=== PATIENT | female | born 1985 | race Caucasian/White ===

== ENCOUNTER 2017-01-04 21:25 | Inpatient (IN) | payer OTHER ==
[~2017-01-04] VITALS: Ht 172.7 cm; Wt 100.2 kg
[~2017-01-04 21:25] MED LIST: PNV1TABL72 PO
[2017-01-04] MEDS ORDERED: Lactated Ringer's 1,000 ML IV PRN (21:53)
[2017-01-04] MEDS ORDERED: Oxytocin 30 Units/500 mL LR 30 UNITS in IV Premix 1 EACH IV PRN (21:55)
[2017-01-04] MEDS ORDERED: Methylergonovine 0.2 mg/mL Inj IM PRN (21:55)
[2017-01-04] MEDS ORDERED: Oxytocin 10 Unit/mL Inj IM PRN (21:55)
[2017-01-04] MEDS ORDERED: fentaNYL-PF 50 mCg/mL 2 mL Inj IVPUSH PRN (21:55)
[2017-01-04] MEDS ORDERED: Penicillin G K Inj 5,000,000 UNITS in Dextrose 5% Minibag Plus 100 ML IV ONE (21:55)
[2017-01-04] MEDS ORDERED: Carboprost 250 mCg/mL Inj IM PRN (21:55)
[2017-01-04] MEDS ORDERED: Hemorrhage Kit, Post Partum XX ONE (21:55)
[2017-01-04] MEDS ORDERED: Sodium Chloride LOK Flush 10 mL Syringe IVFLUSH PRN (21:55)
[2017-01-04] MEDS: Lactated Ringer's 1,000 ML IV SCH (22:17)
[2017-01-04 22:49] LABS: Mean Corpuscular Hemoglobin 32.5 pg (27.0-35.0); Mean Corpuscular Volume 93.6 fL (81-100)
[2017-01-05] MEDS: Penicillin G K Inj 3,000,000 UNITS in IV Premix 1 EACH IV SCH ×4 (02:14→16:45)
--- NOTE | 2017-01-05 08:14 | HP ---
[address] [address] HISTORY AND PHYSICAL PATIENT: DILCIA PICKENS : 1985 MR#: [id number] ADMIT: 01/04/2017 JOB ID: [id number] HISTORY OF PRESENT ILLNESS: This is a 31-year-old female, 2, para 0-0-1-0. She is 39 weeks plus 5 days. She presents to [facility] for leaking of fluid at 10 p.m., with no contractions. The rupture of membranes was confirmed at the triage. No contraction was noticed. heart tracing was category 1. This patient has routine care at [facility]. During her care, it was noted that her blood type is A-positive, Pap smear negative, varicella immune, rubella immune, RPR negative, HBsAg negative, HIV negative. Her diabetes screen, 1 hour glucose test 98. Her GBS was positive. Gonorrhea/chlamydia negative. ALLERGIES: The patient has declined drug allergies. PAST MEDICAL HISTORY: Not significant. PAST SURGICAL HISTORY: Not significant. OBSTETRICAL HISTORY: She had one miscarriage. GYNECOLOGIC HISTORY: Not significant. SOCIAL HISTORY: Declined smoking, drinking alcohol, or drug usage. FAMILY HISTORY: Not significant. PHYSICAL EXAMINATION: She is afebrile. Cardiac: RR. No murmur. Pulmonary: Bilaterally clear. Abdomen is soft, nontender. Uterus: Relaxed. Extremities: Nontender. Pelvic examination: 2-3, -2. heart tracing category 1. No significant was noticed. ASSESSMENT AND PLAN: A 31-year-old female, 2, para 0-0-1-0, at 39 weeks plus 5 days. Rupture of membranes. Not in labor. 1. We will start her on penicillin for GBS positive. 2. Plan to start Pitocin induction in 6 hours after rupture of membranes if no spontaneous onset of labor. 3. Patient can get epidural for pain during labor if she expects pain management, or she can get IV medication for pain. 4. Expect vaginal delivery.
[2017-01-05] MEDS: Lactated Ringer's 1,000 ML IV SCH ×3 (10:56→18:32)
[2017-01-05] MEDS ORDERED: Lactated Ringer's 1,000 ML IV SCH (21:42)
[2017-01-05] MEDS ORDERED: Carboprost 250 mCg/mL Inj IM PRN (21:45)
[2017-01-05] MEDS ORDERED: Oxytocin 30 Units/500 mL LR 30 UNITS in IV Premix 1 EACH IV PRN (21:45)
[2017-01-05] MEDS ORDERED: Oxytocin 10 Unit/mL Inj IM PRN (21:45)
[2017-01-05] MEDS ORDERED: Benzocaine (Dermoplast) 20% 60 Gm Spray TOPICAL PRN (21:45)
[2017-01-05] MEDS ORDERED: Methylergonovine 0.2 mg/mL Inj IM PRN (21:45)
[2017-01-05] MEDS ORDERED: Witch Hazel-Glycerin Pads TOPICAL PRN (21:45)
[2017-01-05] MEDS ORDERED: oxyCODONE-Acetamin 5-325 mg Tablet PO PRN (21:45)
[2017-01-05] MEDS ORDERED: Hemorrhage Kit, Post Partum XX ONE (21:45)
[2017-01-05] MEDS ORDERED: LANOlin HPA 7 Gm Ointment TOPICAL PRN (21:45)
--- NOTE | 2017-01-05 21:59 | OP ---
[address] [address] OPERATIVE REPORT PATIENT: DILCIA PICKENS : 1985 MR#: [id number] ADMIT: 01/04/2017 JOB ID: [id number] DATE OF SURGERY: 01/05/2017 (date of delivery) PREOPERATIVE DIAGNOSIS(ES): A 31-year-old, 2, para 0-0-1-0 at 39 weeks and 5 days gestational age presented to the center with premature rupture of membranes. Induction of labor started with Pitocin. Patient progressed to fully dilated, +3 station. GBS positive. Treated with penicillin prophylaxis. POSTOPERATIVE DIAGNOSIS(ES): A 31-year-old, 2, para 0-0-1-0 at 39 weeks and 5 days gestational age presented to the center with premature rupture of membranes. Induction of labor started with Pitocin. Patient progressed to fully dilated, +3 station. GBS positive. Treated with penicillin prophylaxis. PROCEDURE: Spontaneous vaginal delivery. SURGEON: Renea Johnson MD. ANESTHESIA: Local for perineal laceration repair. ESTIMATED BLOOD LOSS: 200 cc. COMPLICATIONS: None. FINDINGS: Single viable male infant with Apgars 9/9. Weight is still pending. PROCEDURE: Patient started to push efficiently. Infant had delivered in right occiput anterior position followed by shoulders and rest of the body. Delayed cord clamping allowed for 60 seconds. Infant placed over mom's chest with cord clamped and cut. Placenta followed spontaneously. Upon inspection, it was noted to be intact with three-vessel cord centrally inserted. Firm uterine fundus with no blood clots retrieved after delivery of the placenta. Inspection of the perineum revealed a second-degree perineal laceration at 6 o'clock position that was repaired in two-layer fashion with 2-0 Vicryl suture after injecting 10 cc of 1% lidocaine for local analgesia. The patient tolerated the procedure well. Sponge, needle, and instrument counts were correct x2. Mom and baby recovering in stable condition in labor and delivery room. Dr. Johnson was present and scrubbed for the entire procedure.
[2017-01-06 06:29] LABS: Mean Corpuscular Hemoglobin 32.6 pg (27.0-35.0); Mean Corpuscular Volume 93.8 fL (81-100)
[2017-01-06] MEDS ORDERED: Ascorbic Acid 500 mg Tablet PO SCH (08:00)
[2017-01-06] MEDS ORDERED: IBUP-1827 PO (09:44)
[2017-01-06] MEDS ORDERED: DOCU-41 PO (09:44)
--- NOTE | 2017-01-06 09:46 | PCM.DIOB ---
Obstetrical Disch Instruction Dates of Hospitalization Date of Hospital Admission Jan 04, 2017 at 21:40 Providers Admitting Physician: Radha Webster MD Primary Care Physician: Brayan Attending Physician: Radha Webster MD Discharge Diagnosis Discharge Diagnosis PPD1 Problems: Diet Discharge Diet: No restrictions Activity Discharge Activity-General: Pelvic Rest for 6 weeks, Try not to overdue, Be up and about, Balance rest and activity, No lifting >15 pounds for 2 weeks Dressing and Incisional Care Hygiene: May shower, NO bathtub, hot tub or whirlpool Additional Instructions Discharge Instructions please call office or go to ER if heavy vaginal bleeding,severe abdominal pain, foul smelling discharge, fever more than 100.4 Follow Up Plan Follow Up Plan 6 weeks Follow-up appointment: Weeks (6) Call your provider for: Fever or Chills, Shortness of breath, Heavy vaginal bleeding, Heavy bleeding, Excessive constipation, Vaginal discomfort, Red painful breasts Radha Webster MD Jan 06, 2017 09:46
--- NOTE | 2017-01-06 09:54 | PCM.DC.OB ---
Obstetrical Discharge Summary Date of Service Jan 06, 2017 Date of hospital admission Jan 04, 2017 at 21:40 Date of Discharge: Jan 06, 2017 Providers Admitting Physician: Tosha Tenorio MD Primary Care Physician: Nopvinicius Attending Physician: Tosha Tenorio MD Diagnosis at Time of Discharge vaginal delivery PPD1 Problems: Invasive procedures vaginal delivery Date of Procedure: Jan 05, 2017 Brief History and Physical: Afebrile. Cardiac RRR no murmur. Chest clear Abdomen: nontender, uterus well contracted extremities: non tender lochia: moderate Hospital Course: 31 yo female, admitted for RPOM. Induction started with pitocin. Vaginal delivery, without complication. Doing well after delivery Docusate Sodium (Colace) 100 Mg Capsule 100 MG PO BID Prescribed by: TOSHA TENORIO MD Ibuprofen (Ibuprofen) 600 Mg Tablet 600 MG PO Q6H PRN PRN For Mild Pain Prescribed by: TOSHA TENORIO MD Pnv with Ca,No.72/Iron/FA ( Plus Tablet) 1 Each Tablet 1 EACH PO DAILY ( Reported) Disposition home Follow-up plan 6 weeks after delivery Discharge Diet: No restrictions Discharge Activity-General: Pelvic Rest for 6 weeks, Try not to overdue, Be up and about, Balance rest and activity Patient instructions please call office if heavy vaginal bleeding, severe abdominal pain, foul smelling discharge,fever more than 100.4 Tosha Tenorio MD Jan 06, 2017 09:54
[2017-01-06 16:30] VITALS: BP 132/67; PULSE 83; RESP 18
== END 2017-01-06 17:30 | disposition home or self-care (01) | DRG 775 ==
LOC: FBCO 21:25 → FBC 21:40
PROVIDERS: ADMIT Obstetrics & Gynecology; ATTEND Obstetrics & Gynecology
PROC: 10E0XZZ Delivery of Products of Conception, External Approach (ICD-10-PCS; principal; 2017-01-05)
PROC: 0KQM0ZZ Repair Perineum Muscle, Open Approach (ICD-10-PCS; 2017-01-05)
PROC: 3E033VJ Introduction of Other Hormone into Peripheral Vein, Percutaneous Approach (ICD-10-PCS; 2017-01-05)
DX: O42.02 Full-term premature rupture of membranes, onset of labor within 24 hours of rupture (principal); O70.1 Second degree perineal laceration during delivery; O99.824 Streptococcus B carrier state complicating childbirth; Z3A.39 39 weeks gestation of pregnancy; Z37.0 Single live birth